=== PATIENT | female | born 1965 | race Caucasian/White ===

== ENCOUNTER 2017-02-02 07:30 | Inpatient (IN) | payer OTHER ==
[~2017-02-02] VITALS: Ht 170.2 cm; Wt 70.9 kg
[2017-02-16] MEDS ORDERED: RINGERS SOLUTION,LACTATED 1,000 ML IV ONE ×3 (05:30→06:06)
[2017-02-16 06:21] LABS: BASOPHILS % (AUTO) 0.5 % (0.0-2.0); EOSINOPHILS % (AUTO) 3.4 % (1.0-6.0); HEMATOCRIT 37.9 % (36-46); HEMOGLOBIN 13.2 g/dL (12.0-16.0); LYMPHOCYTES # (AUTO) 2.3 K/uL (1.0-4.8); LYMPHOCYTES % (AUTO) 39.5 % (22.0-44.0); MEAN CORPUSCULAR HEMOGLOBIN 31.5 pg (26.0-34.0); MEAN CORPUSCULAR HGB CONC 34.9 G/dL (31.0-37.0); MEAN CORPUSCULAR VOLUME 90 fL (80-100); MONOCYTES # (AUTO) 0.4 K/uL (0.1-1.0); MONOCYTES % (AUTO) 7.2 % (2.0-9.0); NEUTROPHILS # (AUTO) 2.9 K/uL (1.8-7.7); NEUTROPHILS % (AUTO) 49.4 % (40.0-70.0); PLATELET COUNT (AUTO) 242 K/uL (150-450); RED CELL DISTRIBUTION WIDTH 12.5 % (11.5-14.5); WHITE BLOOD COUNT (AUTO) 5.9 K/uL (4.5-11.0)
[2017-02-16] MEDS ORDERED: CeFAZolin 2 GM/DEXTROSE 50 ML IV ONE ×2 (06:26→06:30)
[2017-02-16 06:29] LABS: ANION GAP 7 mmol/L (8-16); CALCIUM, TOTAL 9.4 mg/dL (8.8-10.5); CARBON DIOXIDE 28 mmol/L (22-29); CHLORIDE 105 mmol/L (98-107); CREATININE 0.71 mg/dL (0.60-1.30); GLOMERULAR FILTR. RATE CALC > 60 mL/min (>60); SODIUM SERUM 140 mmol/L (136-145); UREA NITROGEN, BLOOD 23 mg/dL (7-18)
[2017-02-16 06:32] LABS: INR 0.9 (0.9-1.1); PROTHROMBIN TIME 9.6 SEC (9.4-11.6)
[2017-02-16 06:35] LABS: ALANINE AMINOTRANSFERASE 20 U/L (12-78); ASPARTATE AMINOTRANSFERASE 19 U/L (15-37); BILIRUBIN,TOTAL 0.3 mg/dL (0.1-1.0); TOTAL PROTEIN, SERUM 7.1 g/dL (6.4-8.2)
[2017-02-16] MEDS ORDERED: ZOLPIDEM TARTRATE 10 MG TABLET PO PRN (07:30)
[2017-02-16] MEDS ORDERED: BACITRACIN 28.4 GM OINTMENT TP PRN (07:30)
[2017-02-16] MEDS ORDERED: DiphenhydrAMINE HCL 50 MG/ML VIAL IVP PRN (07:30)
[2017-02-16] MEDS: BUPIVACAINE HCL/PF 0.5% 30 ML VIAL ONE ×2 (07:49→07:59)
[2017-02-16] MEDS ORDERED: MORPHINE SULFATE/PF 0.5 MG/ML 10 ML AMP IM ONE (08:00)
[2017-02-16] MEDS: VANCOMYCIN HCL 1 GM/VIAL ONE ×2 (08:03→09:45)
[2017-02-16] MEDS ORDERED: MEPERIDINE-PF 25 MG/ML SYRINGE IVP PRN (08:15)
[2017-02-16] MEDS ORDERED: OxyCODONE HCL/ACETAMINOPHEN 5-325 MG TABLET PO PRN (08:15)
[2017-02-16] MEDS ORDERED: HYDROmorphone 2 MG/ML SYRINGE IVP PRN (08:15)
[2017-02-16] MEDS ORDERED: GUM MASTIC/STORAX/MSAL/ALCOHOL LIQUID 0.67 ML VIAL TP ONE (09:44)
[2017-02-16] MEDS ORDERED: FentaNYL CITRATE-PF 100 MCG/2 ML VIAL ONE (10:21)
[2017-02-16] MEDS: FentaNYL CITRATE-PF 100 MCG/2 ML VIAL IVP PRN ×2 (10:23→10:48)
[2017-02-16] MEDS: MORPHINE SULFATE/PF 1 MG/ML 10 ML AMP IM ONE ×2 (10:25→11:16)
[2017-02-16 11:10] VITALS: BP 123/68
[2017-02-16] MEDS ORDERED: SUCCINYLCHOLINE CHLORIDE 20 MG/ML 10 ML VIAL IVP ONE (12:00)
[2017-02-16] MEDS ORDERED: LIDOCAINE HCL/PF 2% 5 ML VIAL INJ ONE (12:00)
[2017-02-16] MEDS ORDERED: MIDAZOLAM HCL 2 MG/2 ML VIAL IVP ONE (12:00)
[2017-02-16] MEDS ORDERED: FentaNYL CITRATE-PF 100 MCG/2 ML VIAL IVP ONE (12:00)
[2017-02-16] MEDS ORDERED: METOCLOPRAMIDE HCL 5 MG/ML 2 ML VIAL IVP ONE (12:00)
[2017-02-16] MEDS ORDERED: DEXAMETHASONE SOD PHOS 4 MG/ML VIAL IVP ONE (12:00)
[2017-02-16] MEDS ORDERED: ONDANSETRON HCL 4 MG/2 ML VIAL IVP ONE (12:00)
[2017-02-16] MEDS ORDERED: KETOROLAC TROMETHAMINE 60 MG/2 ML VIAL IM ONE (12:00)
[2017-02-16] MEDS ORDERED: NEOSTIGMINE METHYLSULFATE 1 MG/ML 10 ML VIAL IVP ONE (12:00)
[2017-02-16] MEDS ORDERED: HYDROmorphone 2 MG/ML SYRINGE IVP ONE (12:00)
[2017-02-16] MEDS ORDERED: ROCURONIUM BROMIDE 10 MG/ML 5 ML VIAL IVP ONE (12:00)
[2017-02-16] MEDS ORDERED: PROPOFOL 1% 20 ML VIAL IVP ONE (12:00)
[2017-02-16] MEDS ORDERED: GLYCOPYRROLATE 0.2 MG/ML VIAL IM ONE (12:00)
[2017-02-16] MEDS ORDERED: EPHEDrine SULFATE 50 MG/ML VIAL IM ONE (12:00)
[2017-02-16] MEDS: DOCUSATE SODIUM 100 MG CAPSULE PO SCH ×2 (13:24→20:01)
[2017-02-16] MEDS: CYCLOBENZAPRINE HCL 10 MG TABLET PO SCH ×2 (13:24→18:18)
[2017-02-16] MEDS: ACETAMINOPHEN 1000 MG/ISO-OSM 100 ML IV SCH ×2 (15:39→20:01)
[2017-02-16 16:00] VITALS: BP 101/65
[2017-02-16] MEDS: HYDROmorphone 2 MG/ML SYRINGE IVP PRN ×2 (16:07→22:17)
[2017-02-16 19:40] VITALS: BP 102/53
[2017-02-16] MEDS: OXYGEN THERAPY IH SCH (20:00)
[2017-02-16] MEDS: ZOLPIDEM TARTRATE 5 MG TABLET PO PRN (22:18)
[2017-02-17] VITALS (10 sets, daily range): BP systolic 88–123; BP diastolic 52–67
[2017-02-17] MEDS: CYCLOBENZAPRINE HCL 10 MG TABLET PO SCH ×5 (00:16→23:44)
[2017-02-17] MEDS: ACETAMINOPHEN 1000 MG/ISO-OSM 100 ML IV SCH (02:06)
[2017-02-17] MEDS ORDERED: SODIUM CHLORIDE 0.9% 250 ML IV ONE (02:10)
[2017-02-17] MEDS: HYDROmorphone 2 MG/ML SYRINGE IVP PRN (04:33)
[2017-02-17] MEDS: OXYGEN THERAPY IH SCH ×2 (08:00→20:00)
[2017-02-17] MEDS: DOCUSATE SODIUM 100 MG CAPSULE PO SCH ×2 (08:25→20:24)
[2017-02-17] MEDS: OxyCODONE HCL/ACETAMINOPHEN 5-325 MG TABLET PO PRN ×2 (16:38→21:12)
[2017-02-17] MEDS: ZOLPIDEM TARTRATE 5 MG TABLET PO PRN (23:44)
[2017-02-18 05:16] VITALS: BP 106/66
[2017-02-18] MEDS: HYDROmorphone 2 MG/ML SYRINGE IVP PRN ×3 (05:23→19:27)
[2017-02-18] MEDS: CYCLOBENZAPRINE HCL 10 MG TABLET PO SCH ×3 (05:27→18:40)
[2017-02-18 07:30] VITALS: BP 117/68
[2017-02-18 08:00] VITALS: BP 117/68
[2017-02-18] MEDS: OXYGEN THERAPY IH SCH ×2 (08:00→20:00)
[2017-02-18] MEDS: DOCUSATE SODIUM 100 MG CAPSULE PO SCH ×2 (08:26→21:43)
[2017-02-18] MEDS: OxyCODONE HCL/ACETAMINOPHEN 5-325 MG TABLET PO PRN ×3 (09:00→21:43)
[2017-02-18 12:08] VITALS: BP 106/68
[2017-02-18 16:00] VITALS: BP 108/62
[2017-02-18] MEDS: ONDANSETRON HCL 4 MG/2 ML VIAL IVP PRN (16:47)
[2017-02-18] MEDS: MAG HYDROX/AL HYDROX/SIMETH 30 ML SUSP UDCUP PO PRN (16:47)
[2017-02-18 19:30] VITALS: BP 105/61
[2017-02-19] VITALS (7 sets, daily range): BP systolic 93–109; BP diastolic 53–65
[2017-02-19] MEDS: CYCLOBENZAPRINE HCL 10 MG TABLET PO SCH ×4 (00:29→17:55)
[2017-02-19] MEDS: HYDROmorphone 2 MG/ML SYRINGE IVP PRN ×3 (00:46→17:53)
[2017-02-19] MEDS: OXYGEN THERAPY IH SCH ×2 (08:00→20:00)
[2017-02-19] MEDS: OxyCODONE HCL/ACETAMINOPHEN 5-325 MG TABLET PO PRN ×4 (08:24→21:14)
[2017-02-19] MEDS: DOCUSATE SODIUM 100 MG CAPSULE PO SCH ×2 (08:25→21:17)
[2017-02-19] MEDS: MAG HYDROX/AL HYDROX/SIMETH 30 ML SUSP UDCUP PO PRN (21:14)
[2017-02-19] MEDS: ONDANSETRON HCL 4 MG/2 ML VIAL IVP PRN (21:44)
[2017-02-20 04:30] VITALS: BP 99/50
[2017-02-20] MEDS: CYCLOBENZAPRINE HCL 10 MG TABLET PO SCH ×3 (05:32→11:17)
[2017-02-20] MEDS: HYDROmorphone 2 MG/ML SYRINGE IVP PRN ×2 (05:32→11:18)
[2017-02-20 07:57] VITALS: BP 101/58
[2017-02-20] MEDS: OXYGEN THERAPY IH SCH (08:00)
[2017-02-20] MEDS: OxyCODONE HCL/ACETAMINOPHEN 5-325 MG TABLET PO PRN (08:53)
[2017-02-20] MEDS: DOCUSATE SODIUM 100 MG CAPSULE PO SCH (08:53)
[2017-02-20 12:58] VITALS: BP 91/50
[2017-02-21] MEDS ORDERED: HYDR-305 PO (07:16)
[2017-02-21] MEDS ORDERED: LEVO50 PO (07:16)
== END 2017-02-20 13:35 | DRG 460 ==
LOC: 4E 02-16 05:32 → OBSVTOIN 02-16 05:32
PROVIDERS: ADMIT Orthopaedic Surgery Orthopaedic Surgery of the Spine; ATTEND Orthopaedic Surgery Orthopaedic Surgery of the Spine
PROC: B01BYZZ Fluoroscopy of Spinal Cord using Other Contrast (ICD-10-PCS; 2017-02-16)
PROC: 0SG0071 Fusion of Lumbar Vertebral Joint with Autologous Tissue Substitute, Posterior Approach, Posterior Column, Open Approach (ICD-10-PCS; principal; 2017-02-16 07:49)
DX: M48.06 Spinal stenosis, lumbar region (principal); M54.5 Low back pain; M43.16 Spondylolisthesis, lumbar region
CPT/HCPCS: 87081; 93005; 97116; 97161; 97165; 97530; 97535; C1713; G0238; J0131; J0330; J0690; J1100; J1170; J1200; J1885; J2250; J2274; J2405; J2704; J2765; J3010; J3370; J3490; J7050; J7120

== ENCOUNTER 2017-02-20 13:25 | Inpatient (IN) | payer OTHER ==
[~2017-02-20] VITALS: Ht 170.2 cm; Wt 69.9 kg
[2017-02-20] MEDS ORDERED: ZOLPIDEM TARTRATE 5 MG TABLET PO PRN (15:15)
[2017-02-20] MEDS ORDERED: OxyCODONE HCL/ACETAMINOPHEN 5-325 MG TABLET PO PRN ×2 (15:15)
[2017-02-20 15:40] VITALS: BP 104/53
[2017-02-20 16:41] VITALS: BP_SYST 104; BP_SYST 164; BP_DIAS 107; BP_DIAS 53
[2017-02-20 17:39] LABS: APPEARANCE,URINE CLEAR (CLEAR); GLUCOSE, URINE (UA) NEGATIVE (NEGATIVE); KETONES,URINE NEGATIVE (NEGATIVE); LEUKOCYTE ESTERASE ,URINE TRACE (NEGATIVE); OCCULT BLOOD,URINE SMALL (NEGATIVE); PH,URINE 6.5 (5.0-8.0); PROTEIN,URINE NEGATIVE (NEGATIVE)
[2017-02-20 17:50] LABS: RBC,URINE 0-2 /HPF (0-2); SQUAMOUS EPITHELIAL CELL,UR Rare /LPF (None Seen); WBC,URINE 0-2 /HPF (0-5)
[2017-02-20] MEDS: CYCLOBENZAPRINE HCL 10 MG TABLET PO SCH (18:56)
[2017-02-20] MEDS: OxyCODONE HCL/ACETAMINOPHEN 5-325 MG TABLET PO PRN (19:21)
[2017-02-20] MEDS: DOCUSATE SODIUM 250 MG CAPSULE PO SCH (20:56)
[2017-02-20] MEDS: SENNA 187 MG TABLET PO SCH (20:56)
[2017-02-21] MEDS: CYCLOBENZAPRINE HCL 10 MG TABLET PO SCH ×5 (00:22→23:12)
[2017-02-21 00:30] VITALS: BP 122/58
[2017-02-21] MEDS: OxyCODONE HCL/ACETAMINOPHEN 5-325 MG TABLET PO PRN ×3 (00:30→09:56)
[2017-02-21] MEDS: DOCUSATE SODIUM 283 MG/5 ML MINI-ENEMA PR PRN (05:02)
[2017-02-21] MEDS ORDERED: LEVO50 PO (07:16)
[2017-02-21] MEDS ORDERED: HYDR-305 PO (07:16)
[2017-02-21 07:24] VITALS: BP 93/53
[2017-02-21 07:59] LABS: BASOPHILS % (AUTO) 0.4 % (0.0-2.0); EOSINOPHILS % (AUTO) 2.7 % (1.0-6.0); HEMATOCRIT 32.9 % (36-46); HEMOGLOBIN 11.3 g/dL (12.0-16.0); LYMPHOCYTES # (AUTO) 2.3 K/uL (1.0-4.8); LYMPHOCYTES % (AUTO) 31.4 % (22.0-44.0); MEAN CORPUSCULAR HEMOGLOBIN 31.3 pg (26.0-34.0); MEAN CORPUSCULAR HGB CONC 34.3 G/dL (31.0-37.0); MEAN CORPUSCULAR VOLUME 91 fL (80-100); MONOCYTES # (AUTO) 0.7 K/uL (0.1-1.0); MONOCYTES % (AUTO) 9.4 % (2.0-9.0); NEUTROPHILS # (AUTO) 4.1 K/uL (1.8-7.7); NEUTROPHILS % (AUTO) 56.1 % (40.0-70.0); PLATELET COUNT (AUTO) 263 K/uL (150-450); RED CELL DISTRIBUTION WIDTH 12.7 % (11.5-14.5); WHITE BLOOD COUNT (AUTO) 7.4 K/uL (4.5-11.0)
[2017-02-21 08:29] LABS: ALANINE AMINOTRANSFERASE 20 U/L (12-78); ALBUMIN 2.9 g/dL (3.4-5.0); ANION GAP 5 mmol/L (8-16); ASPARTATE AMINOTRANSFERASE 15 U/L (15-37); BILIRUBIN,TOTAL 0.5 mg/dL (0.1-1.0); CALCIUM, TOTAL 8.9 mg/dL (8.8-10.5); CARBON DIOXIDE 31 mmol/L (22-29); CHLORIDE 100 mmol/L (98-107); GLOMERULAR FILTR. RATE CALC > 60 mL/min (>60); POTASSIUM 3.9 mmol/L (3.5-5.1); SODIUM SERUM 136 mmol/L (136-145); TOTAL PROTEIN, SERUM 6.5 g/dL (6.4-8.2); UREA NITROGEN, BLOOD 13 mg/dL (7-18)
[2017-02-21] MEDS: DOCUSATE SODIUM 250 MG CAPSULE PO SCH ×2 (09:02→20:14)
[2017-02-21] MEDS: OxyCODONE HCL/ACETAMINOPHEN 10-325 MG TABLET PO PRN ×4 (14:13→23:19)
[2017-02-21 15:29] VITALS: BP 112/53
[2017-02-21] MEDS: SENNA 187 MG TABLET PO SCH (20:14)
[2017-02-21 23:20] VITALS: BP 109/63
[2017-02-22] MEDS: OxyCODONE HCL/ACETAMINOPHEN 10-325 MG TABLET PO PRN ×3 (04:02→17:42)
[2017-02-22] MEDS: CYCLOBENZAPRINE HCL 10 MG TABLET PO SCH ×4 (05:17→23:26)
[2017-02-22] MEDS: DOCUSATE SODIUM 283 MG/5 ML MINI-ENEMA PR PRN (05:17)
[2017-02-22] MEDS: LEVOTHYROXINE SODIUM 50 MCG TABLET PO SCH (06:03)
[2017-02-22] MEDS ORDERED: MAGNESIUM HYDROXIDE SUSPENSION 30 ML UDCUP PO PRN (09:00)
[2017-02-22] MEDS: DOCUSATE SODIUM 250 MG CAPSULE PO SCH ×2 (09:43→20:30)
[2017-02-22] MEDS: POLYETHYLENE GLYCOL 3350 17 GM PACKET PO SCH (15:21)
[2017-02-22 15:30] VITALS: BP 97/56
[2017-02-22 17:41] VITALS: BP 115/71
[2017-02-22] MEDS: SENNA 187 MG TABLET PO SCH (20:30)
[2017-02-22 23:10] VITALS: BP 93/57
[2017-02-23] VITALS (9 sets, daily range): BP systolic 74–107; BP diastolic 47–67
[2017-02-23] MEDS: OxyCODONE HCL/ACETAMINOPHEN 10-325 MG TABLET PO PRN ×5 (00:01→21:12)
[2017-02-23] MEDS: DOCUSATE SODIUM 283 MG/5 ML MINI-ENEMA PR PRN (05:36)
[2017-02-23] MEDS: LEVOTHYROXINE SODIUM 50 MCG TABLET PO SCH (06:08)
[2017-02-23] MEDS: CYCLOBENZAPRINE HCL 10 MG TABLET PO SCH ×4 (06:08→23:35)
[2017-02-23] MEDS: DOCUSATE SODIUM 250 MG CAPSULE PO SCH ×2 (07:52→20:20)
[2017-02-23] MEDS: OxyCODONE HCL/ACETAMINOPHEN 5-325 MG TABLET PO PRN (07:53)
[2017-02-23] MEDS: POLYETHYLENE GLYCOL 3350 17 GM PACKET PO SCH (08:34)
[2017-02-23] MEDS: SENNA 187 MG TABLET PO SCH (20:20)
[2017-02-24] MEDS: OxyCODONE HCL/ACETAMINOPHEN 10-325 MG TABLET PO PRN ×4 (05:01→16:57)
[2017-02-24] MEDS: CYCLOBENZAPRINE HCL 10 MG TABLET PO SCH ×3 (06:28→16:56)
[2017-02-24] MEDS: LEVOTHYROXINE SODIUM 50 MCG TABLET PO SCH (06:28)
[2017-02-24] MEDS: POLYETHYLENE GLYCOL 3350 17 GM PACKET PO SCH (08:02)
[2017-02-24] MEDS: DOCUSATE SODIUM 250 MG CAPSULE PO SCH ×2 (08:02→20:28)
[2017-02-24 08:10] VITALS: BP 97/57
[2017-02-24 10:00] VITALS: BP 101/50
[2017-02-24 10:15] VITALS: BP 94/64
[2017-02-24 11:00] VITALS: BP 102/66
[2017-02-24 15:50] VITALS: BP 101/64
[2017-02-24] MEDS: SENNA 187 MG TABLET PO SCH (20:28)
[2017-02-24] MEDS: OxyCODONE HCL/ACETAMINOPHEN 5-325 MG TABLET PO PRN (20:33)
[2017-02-25 00:10] VITALS: BP 111/66
[2017-02-25] MEDS: CYCLOBENZAPRINE HCL 10 MG TABLET PO SCH ×5 (00:12→23:15)
[2017-02-25] MEDS: OxyCODONE HCL/ACETAMINOPHEN 10-325 MG TABLET PO PRN ×4 (00:12→13:14)
[2017-02-25] MEDS: LEVOTHYROXINE SODIUM 50 MCG TABLET PO SCH (06:06)
[2017-02-25 07:19] VITALS: BP 104/57
[2017-02-25] MEDS: POLYETHYLENE GLYCOL 3350 17 GM PACKET PO SCH ×2 (08:31→20:29)
[2017-02-25] MEDS: DOCUSATE SODIUM 250 MG CAPSULE PO SCH ×2 (09:59→20:29)
[2017-02-25 17:00] VITALS: BP 108/73
[2017-02-25] MEDS: OxyCODONE HCL/ACETAMINOPHEN 5-325 MG TABLET PO PRN (20:29)
[2017-02-25] MEDS: SENNA 187 MG TABLET PO SCH (20:29)
[2017-02-25 23:17] VITALS: BP 104/61
[2017-02-26] MEDS: OxyCODONE HCL/ACETAMINOPHEN 10-325 MG TABLET PO PRN ×4 (03:12→23:30)
[2017-02-26] MEDS: CYCLOBENZAPRINE HCL 10 MG TABLET PO SCH ×4 (05:58→23:31)
[2017-02-26] MEDS: LEVOTHYROXINE SODIUM 50 MCG TABLET PO SCH (06:00)
[2017-02-26 08:36] VITALS: BP 90/50
[2017-02-26] MEDS: POLYETHYLENE GLYCOL 3350 17 GM PACKET PO SCH ×2 (08:36→21:09)
[2017-02-26] MEDS: DOCUSATE SODIUM 283 MG/5 ML MINI-ENEMA PR PRN (08:36)
[2017-02-26] MEDS: DOCUSATE SODIUM 250 MG CAPSULE PO SCH ×2 (08:36→21:09)
[2017-02-26] MEDS: OxyCODONE HCL/ACETAMINOPHEN 5-325 MG TABLET PO PRN (08:56)
[2017-02-26 09:55] VITALS: BP 91/54
[2017-02-26 13:52] VITALS: BP 80/33
[2017-02-26 14:23] VITALS: BP 87/54
[2017-02-26 15:07] VITALS: BP 108/53
[2017-02-26] MEDS: SENNA 187 MG TABLET PO SCH (21:09)
[2017-02-26 23:30] VITALS: BP 107/52
[2017-02-27] MEDS: LEVOTHYROXINE SODIUM 50 MCG TABLET PO SCH (06:08)
[2017-02-27] MEDS: CYCLOBENZAPRINE HCL 10 MG TABLET PO SCH (06:08)
[2017-02-27 07:50] VITALS: BP 86/44
[2017-02-27] MEDS: POLYETHYLENE GLYCOL 3350 17 GM PACKET PO SCH ×2 (08:35→21:00)
[2017-02-27] MEDS: DOCUSATE SODIUM 250 MG CAPSULE PO SCH ×2 (08:35→21:00)
[2017-02-27 08:50] VITALS: BP 81/58
[2017-02-27 09:30] VITALS: BP 101/58
[2017-02-27] MEDS: ACETAMINOPHEN 325 MG TABLET PO PRN (09:31)
[2017-02-27 11:32] LABS: BASOPHILS % (AUTO) 0.4 % (0.0-2.0); EOSINOPHILS % (AUTO) 1.9 % (1.0-6.0); HEMATOCRIT 36.1 % (36-46); HEMOGLOBIN 12.5 g/dL (12.0-16.0); LYMPHOCYTES % (AUTO) 29.4 % (22.0-44.0); MEAN CORPUSCULAR HEMOGLOBIN 31.3 pg (26.0-34.0); MEAN CORPUSCULAR HGB CONC 34.5 G/dL (31.0-37.0); MEAN CORPUSCULAR VOLUME 91 fL (80-100); MONOCYTES # (AUTO) 0.3 K/uL (0.1-1.0); MONOCYTES % (AUTO) 4.7 % (2.0-9.0); NEUTROPHILS # (AUTO) 4.3 K/uL (1.8-7.7); NEUTROPHILS % (AUTO) 63.6 % (40.0-70.0); PLATELET COUNT (AUTO) 400 K/uL (150-450); RED BLOOD CELL COUNT(AUTO) 3.98 MIL/uL (4.00-5.20); RED CELL DISTRIBUTION WIDTH 12.3 % (11.5-14.5); WHITE BLOOD COUNT (AUTO) 6.8 K/uL (4.5-11.0)
[2017-02-27 11:41] LABS: ANION GAP 6 mmol/L (8-16); CALCIUM, TOTAL 9.4 mg/dL (8.8-10.5); CARBON DIOXIDE 32 mmol/L (22-29); CHLORIDE 103 mmol/L (98-107); CREATININE 0.71 mg/dL (0.60-1.30); GLOMERULAR FILTR. RATE CALC > 60 mL/min (>60); SODIUM SERUM 141 mmol/L (136-145); UREA NITROGEN, BLOOD 17 mg/dL (7-18)
[2017-02-27 13:45] VITALS: BP 89/51
[2017-02-27] MEDS: OxyCODONE HCL/ACETAMINOPHEN 5-325 MG TABLET PO PRN (13:46)
[2017-02-27 15:10] VITALS: BP 100/59
[2017-02-27] MEDS: SENNA 187 MG TABLET PO SCH (21:00)
[2017-02-27] MEDS: OxyCODONE HCL/ACETAMINOPHEN 10-325 MG TABLET PO PRN (22:29)
[2017-02-27 23:29] VITALS: BP 105/63
[2017-02-28] MEDS: LEVOTHYROXINE SODIUM 50 MCG TABLET PO SCH (06:37)
[2017-02-28 07:38] VITALS: BP 100/67
[2017-02-28] MEDS: OxyCODONE HCL/ACETAMINOPHEN 5-325 MG TABLET PO PRN ×2 (07:38→13:20)
[2017-02-28] MEDS: DOCUSATE SODIUM 250 MG CAPSULE PO SCH ×2 (09:28→20:16)
[2017-02-28] MEDS: POLYETHYLENE GLYCOL 3350 17 GM PACKET PO SCH ×2 (09:28→20:15)
[2017-02-28 15:20] VITALS: BP 121/68
[2017-02-28 20:14] VITALS: BP 103/59
[2017-02-28] MEDS: SENNA 187 MG TABLET PO SCH (20:16)
[2017-02-28] MEDS: HYDROCODONE/ACETAMINOPHEN 5-325 MG TABLET PO PRN (20:16)
[2017-02-28 23:50] VITALS: BP 100/58
[2017-03-01] MEDS: HYDROCODONE/ACETAMINOPHEN 5-325 MG TABLET PO PRN ×3 (05:53→16:30)
[2017-03-01] MEDS: LEVOTHYROXINE SODIUM 50 MCG TABLET PO SCH (05:53)
[2017-03-01] MEDS: POLYETHYLENE GLYCOL 3350 17 GM PACKET PO SCH ×2 (09:00→20:28)
[2017-03-01] MEDS: DOCUSATE SODIUM 250 MG CAPSULE PO SCH ×2 (10:09→20:30)
[2017-03-01 11:01] VITALS: BP 92/55
[2017-03-01 15:15] VITALS: BP 90/57
[2017-03-01 16:26] VITALS: BP 97/55
[2017-03-01] MEDS: ACETAMINOPHEN 325 MG TABLET PO PRN (18:02)
[2017-03-01 18:47] VITALS: BP 113/67
[2017-03-01] MEDS ORDERED: ONDANSETRON HCL 4 MG TABLET PO PRN (19:00)
[2017-03-01] MEDS ORDERED: SUMAtriptan SUCCINATE 25 MG TABLET PO PRN (19:00)
[2017-03-01] MEDS: SENNA 187 MG TABLET PO SCH (20:30)
[2017-03-01 23:20] VITALS: BP 102/67
[2017-03-02] MEDS: HYDROCODONE/ACETAMINOPHEN 5-325 MG TABLET PO PRN ×4 (06:01→23:50)
[2017-03-02] MEDS: LEVOTHYROXINE SODIUM 50 MCG TABLET PO SCH (06:01)
[2017-03-02] MEDS: POLYETHYLENE GLYCOL 3350 17 GM PACKET PO SCH (08:25)
[2017-03-02] MEDS: DOCUSATE SODIUM 250 MG CAPSULE PO SCH ×2 (08:25→20:21)
[2017-03-02 08:30] VITALS: BP 92/61
[2017-03-02 09:20] VITALS: BP 82/52
[2017-03-02 09:30] VITALS: BP 83/38
[2017-03-02 09:35] VITALS: BP 92/55
[2017-03-02 12:38] LABS: THYROID STIMULATING HORMONE 1.91 uIU/mL (0.36-3.74)
[2017-03-02] MEDS: NAPROXEN 500 MG TABLET PO SCH (13:41)
[2017-03-02 15:32] VITALS: BP 103/57
[2017-03-02] MEDS: CYCLOBENZAPRINE HCL 10 MG TABLET PO SCH (20:22)
[2017-03-02] MEDS: SENNA 187 MG TABLET PO SCH (20:54)
[2017-03-02 23:50] VITALS: BP 101/49
[2017-03-03] MEDS: LEVOTHYROXINE SODIUM 50 MCG TABLET PO SCH (06:10)
[2017-03-03 08:05] VITALS: BP 88/43
[2017-03-03] MEDS: HYDROCODONE/ACETAMINOPHEN 5-325 MG TABLET PO PRN ×3 (08:06→17:11)
[2017-03-03] MEDS: DOCUSATE SODIUM 250 MG CAPSULE PO SCH ×2 (09:00→20:52)
[2017-03-03] MEDS: POLYETHYLENE GLYCOL 3350 17 GM PACKET PO SCH (09:00)
[2017-03-03] MEDS: NAPROXEN 500 MG TABLET PO SCH ×2 (10:10→20:52)
[2017-03-03 12:45] VITALS: BP 98/62
[2017-03-03 15:39] VITALS: BP 97/49
[2017-03-03] MEDS ORDERED: DiphenhydrAMINE HCL 25 MG CAPSULE PO PRN (19:15)
[2017-03-03] MEDS: CYCLOBENZAPRINE HCL 10 MG TABLET PO SCH (20:52)
[2017-03-03] MEDS: SENNA 187 MG TABLET PO SCH (21:00)
[2017-03-03 23:47] VITALS: BP 97/57
[2017-03-04] MEDS: HYDROCODONE/ACETAMINOPHEN 5-325 MG TABLET PO PRN ×3 (03:18→19:18)
[2017-03-04] MEDS: LEVOTHYROXINE SODIUM 50 MCG TABLET PO SCH (06:43)
[2017-03-04 08:00] VITALS: BP 100/61
[2017-03-04] MEDS: POLYETHYLENE GLYCOL 3350 17 GM PACKET PO SCH (08:38)
[2017-03-04] MEDS: NAPROXEN 500 MG TABLET PO SCH ×2 (08:38→20:59)
[2017-03-04] MEDS: DOCUSATE SODIUM 250 MG CAPSULE PO SCH ×2 (08:38→20:58)
[2017-03-04 09:50] VITALS: BP 98/49
[2017-03-04 10:00] VITALS: BP 86/55
[2017-03-04] MEDS ORDERED: *NON-FORMULARY MED [ENTER DRUG, DOSE, FREQ IN COMMENTS] CLINICAL SCH ×6 (10:30)
[2017-03-04] MEDS: CENTRUM SILVER TABLET PO SCH (12:09)
[2017-03-04] MEDS: CHOLECALCIFEROL PO SCH (12:09)
[2017-03-04] MEDS: HAIR SKIN PO SCH (12:09)
[2017-03-04] MEDS: FISH OIL PO SCH (12:09)
[2017-03-04 15:30] VITALS: BP 95/56
[2017-03-04] MEDS: CYCLOBENZAPRINE HCL 10 MG TABLET PO SCH (20:58)
[2017-03-04] MEDS: SENNA 187 MG TABLET PO SCH (20:59)
[2017-03-05 01:26] VITALS: BP 100/64
[2017-03-05] MEDS: HYDROCODONE/ACETAMINOPHEN 5-325 MG TABLET PO PRN ×4 (01:26→22:44)
[2017-03-05] MEDS: LEVOTHYROXINE SODIUM 50 MCG TABLET PO SCH (06:25)
[2017-03-05] MEDS: FISH OIL PO SCH (08:19)
[2017-03-05] MEDS: CHOLECALCIFEROL PO SCH (08:19)
[2017-03-05] MEDS: DOCUSATE SODIUM 250 MG CAPSULE PO SCH ×2 (08:20→20:19)
[2017-03-05] MEDS: HAIR SKIN PO SCH (08:20)
[2017-03-05] MEDS: POLYETHYLENE GLYCOL 3350 17 GM PACKET PO SCH (08:20)
[2017-03-05] MEDS: CENTRUM SILVER TABLET PO SCH (08:20)
[2017-03-05] MEDS: NAPROXEN 500 MG TABLET PO SCH ×2 (08:20→20:19)
[2017-03-05 09:40] VITALS: BP 93/55
[2017-03-05 09:50] VITALS: BP 93/50
[2017-03-05 15:30] VITALS: BP 97/65
[2017-03-05] MEDS: SENNA 187 MG TABLET PO SCH (20:19)
[2017-03-05] MEDS: CYCLOBENZAPRINE HCL 10 MG TABLET PO SCH (20:19)
[2017-03-05 23:43] VITALS: BP 106/63
[2017-03-06] MEDS: LEVOTHYROXINE SODIUM 50 MCG TABLET PO SCH (06:08)
[2017-03-06 07:22] VITALS: BP 98/59
[2017-03-06] MEDS: NAPROXEN 500 MG TABLET PO SCH ×2 (08:09→22:05)
[2017-03-06] MEDS: HAIR SKIN PO SCH (08:09)
[2017-03-06] MEDS: FISH OIL PO SCH (08:09)
[2017-03-06] MEDS: POLYETHYLENE GLYCOL 3350 17 GM PACKET PO SCH (08:09)
[2017-03-06] MEDS: DOCUSATE SODIUM 250 MG CAPSULE PO SCH ×2 (08:09→20:40)
[2017-03-06] MEDS: CHOLECALCIFEROL PO SCH (08:09)
[2017-03-06] MEDS: CENTRUM SILVER TABLET PO SCH (08:09)
[2017-03-06] MEDS: HYDROCODONE/ACETAMINOPHEN 5-325 MG TABLET PO PRN ×2 (08:11→16:27)
[2017-03-06] MEDS ORDERED: MULT-1259 PO (13:56)
[2017-03-06] MEDS ORDERED: MV,I66.7 PO (13:56)
[2017-03-06] MEDS ORDERED: OMEG-53 PO (13:56)
[2017-03-06] MEDS ORDERED: NAPR-58 PO (14:15)
[2017-03-06 16:22] VITALS: BP 95/57
[2017-03-06] MEDS: CYCLOBENZAPRINE HCL 10 MG TABLET PO SCH (20:40)
[2017-03-06] MEDS: SENNA 187 MG TABLET PO SCH (20:40)
[2017-03-06 23:49] VITALS: BP 112/53
[2017-03-07] MEDS: HYDROCODONE/ACETAMINOPHEN 5-325 MG TABLET PO PRN ×3 (02:01→19:28)
[2017-03-07] MEDS: LEVOTHYROXINE SODIUM 50 MCG TABLET PO SCH (06:45)
[2017-03-07] MEDS: POLYETHYLENE GLYCOL 3350 17 GM PACKET PO SCH (09:00)
[2017-03-07] MEDS: FISH OIL PO SCH (09:00)
[2017-03-07] MEDS: CHOLECALCIFEROL PO SCH (09:00)
[2017-03-07] MEDS: DOCUSATE SODIUM 250 MG CAPSULE PO SCH ×2 (09:00→21:30)
[2017-03-07] MEDS: CENTRUM SILVER TABLET PO SCH (09:01)
[2017-03-07] MEDS: HAIR SKIN PO SCH (09:01)
[2017-03-07] MEDS: NAPROXEN 500 MG TABLET PO SCH ×2 (09:01→21:30)
[2017-03-07 09:51] VITALS: BP 105/46
[2017-03-07 15:10] VITALS: BP 114/74
[2017-03-07] MEDS: CYCLOBENZAPRINE HCL 10 MG TABLET PO SCH (21:30)
[2017-03-07] MEDS: SENNA 187 MG TABLET PO SCH (21:32)
[2017-03-07 23:50] VITALS: BP 102/66
[2017-03-08] MEDS: HYDROCODONE/ACETAMINOPHEN 5-325 MG TABLET PO PRN ×3 (03:20→23:10)
[2017-03-08] MEDS: LEVOTHYROXINE SODIUM 50 MCG TABLET PO SCH (06:49)
[2017-03-08 10:00] VITALS: BP 113/42
[2017-03-08] MEDS: DOCUSATE SODIUM 250 MG CAPSULE PO SCH ×2 (10:54→21:04)
[2017-03-08] MEDS: CENTRUM SILVER TABLET PO SCH (10:54)
[2017-03-08] MEDS: POLYETHYLENE GLYCOL 3350 17 GM PACKET PO SCH (10:54)
[2017-03-08] MEDS: HAIR SKIN PO SCH (10:54)
[2017-03-08] MEDS: FISH OIL PO SCH (10:54)
[2017-03-08] MEDS: NAPROXEN 500 MG TABLET PO SCH ×2 (10:54→21:02)
[2017-03-08] MEDS: CHOLECALCIFEROL PO SCH (10:54)
[2017-03-08 15:35] VITALS: BP 92/61
[2017-03-08] MEDS: SENNA 187 MG TABLET PO SCH (21:03)
[2017-03-08] MEDS: CYCLOBENZAPRINE HCL 10 MG TABLET PO SCH (21:03)
[2017-03-08 23:10] VITALS: BP 101/68
[2017-03-09] MEDS: LEVOTHYROXINE SODIUM 50 MCG TABLET PO SCH (06:57)
[2017-03-09 07:15] VITALS: BP_SYST 76; BP_SYST 86; BP_DIAS 32; BP_DIAS 56
[2017-03-09] MEDS: CENTRUM SILVER TABLET PO SCH (09:00)
[2017-03-09] MEDS: FISH OIL PO SCH (09:00)
[2017-03-09] MEDS: HAIR SKIN PO SCH (09:00)
[2017-03-09] MEDS: CHOLECALCIFEROL PO SCH (09:00)
[2017-03-09] MEDS: DOCUSATE SODIUM 250 MG CAPSULE PO SCH ×2 (09:00→20:13)
[2017-03-09] MEDS: POLYETHYLENE GLYCOL 3350 17 GM PACKET PO SCH (09:01)
[2017-03-09] MEDS: NAPROXEN 500 MG TABLET PO SCH ×2 (09:01→20:14)
[2017-03-09] MEDS: HYDROCODONE/ACETAMINOPHEN 5-325 MG TABLET PO PRN ×2 (09:02→23:05)
[2017-03-09 10:25] VITALS: BP 102/66
[2017-03-09] MEDS: DULoxetine HCL 30 MG CAPSULE PO SCH (12:17)
[2017-03-09 15:43] VITALS: BP 80/63
[2017-03-09] MEDS: SENNA 187 MG TABLET PO SCH (20:13)
[2017-03-09] MEDS: CYCLOBENZAPRINE HCL 10 MG TABLET PO SCH (20:14)
[2017-03-09 20:19] VITALS: BP 114/76
[2017-03-09 23:05] VITALS: BP 115/70
[2017-03-10] MEDS: LEVOTHYROXINE SODIUM 50 MCG TABLET PO SCH (06:20)
[2017-03-10 06:33] LABS: BASOPHILS % (AUTO) 0.6 % (0.0-2.0); EOSINOPHILS % (AUTO) 3.9 % (1.0-6.0); HEMATOCRIT 34.1 % (36-46); HEMOGLOBIN 11.8 g/dL (12.0-16.0); LYMPHOCYTES # (AUTO) 2.6 K/uL (1.0-4.8); LYMPHOCYTES % (AUTO) 40.3 % (22.0-44.0); MEAN CORPUSCULAR HEMOGLOBIN 31.4 pg (26.0-34.0); MEAN CORPUSCULAR HGB CONC 34.6 G/dL (31.0-37.0); MEAN CORPUSCULAR VOLUME 91 fL (80-100); MONOCYTES # (AUTO) 0.4 K/uL (0.1-1.0); MONOCYTES % (AUTO) 5.4 % (2.0-9.0); NEUTROPHILS # (AUTO) 3.3 K/uL (1.8-7.7); NEUTROPHILS % (AUTO) 49.8 % (40.0-70.0); PLATELET COUNT (AUTO) 337 K/uL (150-450); RED BLOOD CELL COUNT(AUTO) 3.76 MIL/uL (4.00-5.20); RED CELL DISTRIBUTION WIDTH 12.8 % (11.5-14.5); WHITE BLOOD COUNT (AUTO) 6.5 K/uL (4.5-11.0)
[2017-03-10 06:56] LABS: ALANINE AMINOTRANSFERASE 21 U/L (12-78); ALBUMIN 3.5 g/dL (3.4-5.0); ANION GAP 4 mmol/L (8-16); ASPARTATE AMINOTRANSFERASE 19 U/L (15-37); BILIRUBIN,TOTAL 0.2 mg/dL (0.1-1.0); CALCIUM, TOTAL 9.1 mg/dL (8.8-10.5); CARBON DIOXIDE 30 mmol/L (22-29); CHLORIDE 106 mmol/L (98-107); CREATININE 0.59 mg/dL (0.60-1.30); GLOMERULAR FILTR. RATE CALC > 60 mL/min (>60); POTASSIUM 4.3 mmol/L (3.5-5.1); SODIUM SERUM 140 mmol/L (136-145); THYROID STIMULATING HORMONE 0.98 uIU/mL (0.36-3.74); TOTAL PROTEIN, SERUM 6.5 g/dL (6.4-8.2); UREA NITROGEN, BLOOD 20 mg/dL (7-18)
[2017-03-10 08:00] VITALS: BP 100/59
[2017-03-10] MEDS: CENTRUM SILVER TABLET PO SCH (08:46)
[2017-03-10] MEDS: POLYETHYLENE GLYCOL 3350 17 GM PACKET PO SCH (08:46)
[2017-03-10] MEDS: DOCUSATE SODIUM 250 MG CAPSULE PO SCH ×2 (08:48→20:40)
[2017-03-10] MEDS: DULoxetine HCL 30 MG CAPSULE PO SCH (08:48)
[2017-03-10] MEDS: FISH OIL PO SCH (08:48)
[2017-03-10] MEDS: HAIR SKIN PO SCH (08:48)
[2017-03-10] MEDS: NAPROXEN 500 MG TABLET PO SCH ×2 (08:48→20:40)
[2017-03-10] MEDS: CHOLECALCIFEROL PO SCH (08:48)
[2017-03-10 08:50] LABS: VITAMIN B12 LEVEL > 2000 pg/mL (211-911)
[2017-03-10] MEDS: HYDROCODONE/ACETAMINOPHEN 5-325 MG TABLET PO PRN ×2 (10:03→22:31)
[2017-03-10 13:20] VITALS: BP 94/64
[2017-03-10 16:19] VITALS: BP 93/67
[2017-03-10] MEDS: CYCLOBENZAPRINE HCL 10 MG TABLET PO SCH (20:40)
[2017-03-10] MEDS: SENNA 187 MG TABLET PO SCH (20:40)
[2017-03-10 22:31] VITALS: BP 110/70
[2017-03-10 23:31] VITALS: BP 105/66
[2017-03-11] MEDS ORDERED: DULO30CA2 PO (03:17)
[2017-03-11] MEDS: LEVOTHYROXINE SODIUM 50 MCG TABLET PO SCH (06:42)
[2017-03-11 07:56] VITALS: BP 90/53
[2017-03-11] MEDS: POLYETHYLENE GLYCOL 3350 17 GM PACKET PO SCH (08:47)
[2017-03-11] MEDS: CENTRUM SILVER TABLET PO SCH (08:47)
[2017-03-11] MEDS: CHOLECALCIFEROL PO SCH (08:47)
[2017-03-11] MEDS: FISH OIL PO SCH (08:47)
[2017-03-11] MEDS: NAPROXEN 500 MG TABLET PO SCH ×2 (08:48→20:00)
[2017-03-11] MEDS: HAIR SKIN PO SCH (08:48)
[2017-03-11] MEDS: DULoxetine HCL 30 MG CAPSULE PO SCH (08:48)
[2017-03-11] MEDS: DOCUSATE SODIUM 250 MG CAPSULE PO SCH ×2 (08:48→20:00)
[2017-03-11] MEDS: HYDROCODONE/ACETAMINOPHEN 5-325 MG TABLET PO PRN (10:16)
[2017-03-11 15:01] VITALS: BP 83/47
[2017-03-11] MEDS: CYCLOBENZAPRINE HCL 10 MG TABLET PO SCH (20:00)
[2017-03-11] MEDS: SENNA 187 MG TABLET PO SCH (20:00)
[2017-03-11 22:00] VITALS: BP 94/52
[2017-03-11 23:09] VITALS: BP 95/51
[2017-03-12] MEDS: LEVOTHYROXINE SODIUM 50 MCG TABLET PO SCH (06:40)
[2017-03-12 07:30] VITALS: BP 103/61
[2017-03-12] MEDS: POLYETHYLENE GLYCOL 3350 17 GM PACKET PO SCH (09:16)
[2017-03-12] MEDS: NAPROXEN 500 MG TABLET PO SCH ×2 (09:16→20:47)
[2017-03-12] MEDS: CHOLECALCIFEROL PO SCH (09:16)
[2017-03-12] MEDS: CENTRUM SILVER TABLET PO SCH (09:16)
[2017-03-12] MEDS: DOCUSATE SODIUM 250 MG CAPSULE PO SCH ×2 (09:16→20:46)
[2017-03-12] MEDS: HAIR SKIN PO SCH (09:16)
[2017-03-12] MEDS: FISH OIL PO SCH (09:16)
[2017-03-12] MEDS: DULoxetine HCL 30 MG CAPSULE PO SCH (09:17)
[2017-03-12] MEDS: HYDROCODONE/ACETAMINOPHEN 5-325 MG TABLET PO PRN ×2 (11:42→23:55)
[2017-03-12 15:25] VITALS: BP 99/63
[2017-03-12] MEDS: CYCLOBENZAPRINE HCL 10 MG TABLET PO SCH (20:46)
[2017-03-12] MEDS: SENNA 187 MG TABLET PO SCH (20:47)
[2017-03-12 23:55] VITALS: BP 115/58
[2017-03-13] MEDS: LEVOTHYROXINE SODIUM 50 MCG TABLET PO SCH (06:26)
[2017-03-13 09:00] VITALS: BP 99/58
[2017-03-13] MEDS: FISH OIL PO SCH (09:58)
[2017-03-13] MEDS: CHOLECALCIFEROL PO SCH (09:58)
[2017-03-13] MEDS: DULoxetine HCL 30 MG CAPSULE PO SCH (09:58)
[2017-03-13] MEDS: HAIR SKIN PO SCH (09:58)
[2017-03-13] MEDS: CENTRUM SILVER TABLET PO SCH (09:58)
[2017-03-13] MEDS: POLYETHYLENE GLYCOL 3350 17 GM PACKET PO SCH (09:59)
[2017-03-13] MEDS: NAPROXEN 500 MG TABLET PO SCH (09:59)
[2017-03-13] MEDS: DOCUSATE SODIUM 250 MG CAPSULE PO SCH (09:59)
[2017-03-13] MEDS ORDERED: MIRALAX PO (13:23)
[2017-03-13] MEDS ORDERED: DOCU250C91 PO (13:24)
[2017-03-13] MEDS ORDERED: CYCL10 PO (13:24)
[2017-03-13] MEDS: HYDROCODONE/ACETAMINOPHEN 5-325 MG TABLET PO PRN (13:58)
== END 2017-03-13 14:36 | disposition home or self-care (01) | DRG 552 ==
LOC: OBSVTOIN 13:25 → 2WR 13:25 → UNDODISIN 02-23 14:30
PROVIDERS: ADMIT Physical Medicine & Rehabilitation; ATTEND Physical Medicine & Rehabilitation
DX: M43.16 Spondylolisthesis, lumbar region (principal); F11.20 Opioid dependence, uncomplicated; E03.9 Hypothyroidism, unspecified; F41.9 Anxiety disorder, unspecified; D64.9 Anemia, unspecified; G89.29 Other chronic pain; M54.5 Low back pain; R26.9 Unspecified abnormalities of gait and mobility; T40.2X5A Adverse effect of other opioids, initial encounter; I95.1 Orthostatic hypotension; K59.03 Drug induced constipation; Z80.1 Family history of malignant neoplasm of trachea, bronchus and lung; Z83.3 Family history of diabetes mellitus; Z91.013 Allergy to seafood; Z91.048 Other nonmedicinal substance allergy status
CPT/HCPCS: 72100; 82306; 82607; 82746; 83036; 83735; 84439; 84443; 87081; 93306; 97110; 97116; 97162; 97166; 97530; 97535; 99366; Q0162